=== PATIENT | female | born 1950 | race Caucasian/White ===

== ENCOUNTER 2018-08-28 06:02 | Inpatient (IN) ==
--- NOTE | 2018-08-01 14:09 | PAT Medication Instructions ---
Medication Instructions Date of Service August 01, 2018 Home Medications cholecalciferol (vitamin D3) 1,000 unit PO QAM cyclobenzaprine 10 mg PO HS PRN flaxseed oil 1,000 mg PO QAM losartan-hydrochlorothiazide 1 tab PO QAM lutein 10 mg PO QAM naproxen sodium 440 mg PO BID ASK your surgeon for instructions naproxen sodium 440 mg PO BID STOP taking 2 weeks before surgery (or as soon as possible if surgery is within 2 weeks) flaxseed oil 1,000 mg PO QAM lutein 10 mg PO QAM DO NOT take the morning of surgery cholecalciferol (vitamin D3) 1,000 unit PO QAM losartan-hydrochlorothiazide 1 tab PO QAM Take evening before surgery cyclobenzaprine 10 mg PO HS PRN (if needed) Other Notes If you have any questions please call us at [phone] or [phone] or [phone] or [phone]
--- NOTE | 2018-08-02 13:16 | Anesthesiology Consultation ---
Date of Service August 02, 2018 Assessment & Plan (1) Encounter for pre-operative examination: - Possible difficult intubation due to anatomy. Chart Review Chart Review: Acceptable Risk for Surgery and Patient seen in Pre Admission Testing Teaching & Discussion Pre-Anesthesia Teaching/Discussion Notes: Instructed NPO after midnight before surgery,except medications with 15 cc of water. Medication instructions provided according to the PAT guidelines. History Surgery Operation Date: 08/28/18 07:45 Proposed Procedures p L4-L5 Decompression and Fusion, Spinal Cord Monitoring - Adam Farnsworth DO Height/Weight Height: 5 ft 5.5 in Weight: 125.7 kg Allergies Allergy/AdvReac Type Severity Reaction Status Date / Time codeine AdvReac SEVERE Verified 07/26/18 11:11 NAUSEA AND VOMITING Medications Home Medications Medication Instructions Recorded Confirmed Last Taken cholecalciferol (vitamin D3) 1,000 unit PO QAM 07/26/18 07/26/18 Unknown [Vitamin D3] cyclobenzaprine 10 mg PO HS PRN 07/26/18 07/26/18 Unknown flaxseed oil 1,000 mg PO QAM 07/26/18 07/26/18 Unknown losartan-hydrochlorothiazide 1 tab PO QAM 07/26/18 07/26/18 Unknown lutein 10 mg PO QAM 07/26/18 07/26/18 Unknown naproxen sodium 440 mg PO BID 07/26/18 07/26/18 Unknown Past Medical History Medical History Chronic back pain LLE > RLE RADICULOPATHY/NEUROPATHY Degenerative disc disease History of endometrial cancer S/P HYSTERECTOMY + INTERNAL RADIATION (2012) Hypertension Morbid obesity Sleep apnea BIPAP Exercise / Class Metabolic Activity III < 4 Walking/Shop/Light housework Past Surgical History Surgical History History of section History of cholecystectomy History of colonoscopy History of hysterectomy History of surgery VARICOSE VEINS CAUTERIZATION Past Anesthesia History No Hx of Anesthesia Complications and No Family Hx of Anesthesia Complications History of PONV No Hx of PONV and Hx of Motion Sickness (OCCASIONAL) Social History Smoking Status: Never smoker Smoking cigarettes per day: 0 Do You Dip or Chew Tobacco: No Hx Alcohol Use: Yes Alcohol type: wine alcohol intake frequency: 0-2 drinks per day Alcohol Intake Frequency Comment: 1 GLASS PER NIGHT Hx Substance Use: No substance use type: does not use Review of Systems LBP with B/L LE radiculopathy/neuropathy. Patient denies chest pain, shortness of breath, reflux, cough, wheezing, palpitations. Physical Exam Vital Signs VITALS BP 128/82 P 60 TEMP 98.1 SP02 97%RA RESP 18 PHYSICAL Full neck and c-spine range of motion. Full TMJ range of motion. TMD 3 finger breaths Mallampati Score 3 Dentition: full upper dentures; several missing on lower Lungs: clear throughout to auscultation Cardiac: regular rate and rhythm, no murmurs noted Spine: normal Carotid arteries: negative bruit Extremities: no edema short, thick neck Testing Electrocardiogram Date: 08/02/18 NSR at 67bpm. Suggests RVCD. LAFB. Chest X-Ray Date: 08/02/18 Findings: + NAD Laboratory Results 08/02/18 13:39 08/02/18 13:39 Blood Type A Positive 08/02/18 13:39 Antibody Screen NEGATIVE 08/02/18 13:39 PT 10.3 Seconds (9.0-12.0) 08/02/18 13:39 INR 1.0 (0.9-1.1) 08/02/18 13:39 APTT 25.9 Seconds (21.0-31.0) 08/02/18 13:39 Urine Color Yellow 08/02/18 13:39 Urine Appearance Clear (Clear) 08/02/18 13:39 Urine pH 8.0 (4.5-7.5) H 08/02/18 13:39 Ur Specific [place] 1.015 (1.000-1.030) 08/02/18 13:39 Urine Protein Negative (Negative) 08/02/18 13:39 Urine Glucose (UA) Negative (Negative) 08/02/18 13:39 Urine Ketones Negative (Negative) 08/02/18 13:39 Urine Nitrite Negative (Negative) 08/02/18 13:39 Ur Leukocyte Esterase Negative (Negative) 08/02/18 13:39
--- NOTE | 2018-08-02 14:07 | XRay Report ---
XR chest Pre-admission PA/Lat CLINICAL HISTORY: pat preoperative evaluation COMPARISON STUDY: No previous studies for comparison. FINDINGS: The bones soft tissues and hemidiaphragms are normal. The cardiomediastinal silhouette is n ormal. The lungs are clear. The pulmonary vasculature is normal. IMPRESSION: Negative chest. The above report was generated using voice recognition software. It may contain grammatical, syntax or spelling errors. Electronically signed by: Moises Mancini M.D. 08/02/2018 2:05 PM
[2018-08-02 14:10] LABS: Basophils # (auto) 0.02 K/uL (0-0.2); Basophils % (auto) 0.3 %; Eosinophils # (auto) 0.16 K/uL (0-0.5); Eosinophils % (auto) 2.4 %; Hematocrit (blood only) 39.8 % (37-47); Hemoglobin 13.7 g/dL (12.0-16.0); Immature Granulocytes # (auto) 0.02 K/uL (0.00-0.02); Immature Granulocytes % (auto) 0.3 %; Lymphocytes # (auto) 1.22 K/uL (1.2-3.4); Lymphocytes % (auto) 18.5 %; Mean Corpuscular Hgb Conc 34.4 g/dL (32-36); Mean Corpuscular Volume 87.5 fL (80-100); Monocytes # (auto) 0.47 K/uL (0.11-0.59); Monocytes % (auto) 7.1 %; Neutrophils # (auto) 4.72 K/uL (1.4-6.5); Neutrophils % (auto) 71.4 %; Platelet Count 243 K/uL (130-400); RDW Coefficient of Variation 13.2 % (11.5-14.5); RDW Standard Deviation 42.5 fL (36.4-46.3); Red Blood Count 4.55 M/uL (4.2-5.4); White Blood Count 6.61 K/uL (4.8-10.8)
[2018-08-02 14:36] LABS: Partial Thromboplastin Time 25.9 Seconds (21.0-31.0); Prothrombin Time 10.3 Seconds (9.0-12.0)
[2018-08-02 14:38] LABS: BUN Creatinine Ratio 18.3 (10-20); Calcium 9.6 mg/dl (8.5-10.1); Creatinine Clr Calc Pharmacy 109.6 ml/min; Est GFR (African American) 105.4; Potassium 4.1 mmol/L (3.5-5.1)
[2018-08-02 14:41] LABS: Appearance Urine Clear (Clear); Bilirubin Urine Negative (Negative); Blood Urine Negative (Negative); Color Urine Yellow; Glucose Urine UA Negative (Negative); Ketones Urine Negative (Negative); Leukocyte Esterase Urine Negative (Negative); Nitrite Urine Negative (Negative); Protein Urine Negative (Negative); Specific Gravity Urine 1.015 (1.000-1.030); Urobilinogen Urine Negative (Negative)
[~2018-08-28 06:02] MED LIST: ACETAMINOPHEN 500 MG TAB PO SCH; CEFAZOLIN 2000MG 2,000 MG/15 ML SYR IV SCH; CeleBREX 200 MG CAP PO SCH; GABAPENTIN 300 MG PO SCH; LR 15ML/HR IV SCH; MISSING PHYSICIAN SIGNATURE ON ORDER SCH; ROPIVACAINE 0.5% HCL/PF 150 MG, BUPIVACAINE 0.5% MPF 30 ML, EPINEPHrine 30MG/30ML (OR U... INFIL SCH
[2018-08-28] MEDS ORDERED: MIDAZOLAM HCL 1 MG/ML 2ML VIAL ONE (06:52)
[2018-08-28] MEDS ORDERED: HYDROmorphone INJ 2 MG/ML SYR/VIAL ONE (06:52)
[2018-08-28] MEDS ORDERED: fentaNYL citrate 100 MCG/2 ML VIAL ONE ×4 (06:52→09:40)
[2018-08-28] MEDS ORDERED: LIDOCAINE HCL 2% 2 ML VIAL/AMP(20MG/ML) INFIL ONE (06:54)
[2018-08-28] MEDS ORDERED: DEXAMETHASONE SOD INJ 4 MG/ML VIAL ONE (06:54)
[2018-08-28] MEDS ORDERED: GLYCOPYRROLATE 0.2 MG/ML VIAL ONE (06:54)
[2018-08-28] MEDS ORDERED: ROCURONIUM BROMIDE 10 MG/ML 5 ML VIAL ONE (06:54)
[2018-08-28] MEDS ORDERED: ONDANSETRON INJ 2 MG/ML 2 ML VIAL ONE (06:54)
[2018-08-28] MEDS ORDERED: NEOSTIGMINE METHYLSULFATE 1 MG/ML 10ML VIAL ONE (06:54)
[2018-08-28] MEDS ORDERED: PROPOFOL IV EMULSION 10 MG/ML 20 ML VIAL IV ONE (06:54)
[2018-08-28] MEDS ORDERED: ONDANSETRON INJ 2 MG/ML 2 ML VIAL IV PRN ×2 (07:21→10:59)
[2018-08-28] MEDS ORDERED: ePHEDrine sulfate 50 MG/ML AMP IV PRN (07:21)
[2018-08-28] MEDS ORDERED: BUPIVACAINE/EPINEPHRINE 0.5% MPF 1:200,000 30 ML VIAL ONE (07:21)
[2018-08-28] MEDS ORDERED: ATROPINE SULFATE 0.1 MG/ML 10ML SYR IV PRN (07:21)
[2018-08-28] MEDS ORDERED: PHENYLEPHRINE 100MCG/ML 5ML SYR IV PRN (07:21)
[2018-08-28] MEDS ORDERED: PROMETHAZINE HCL 12.5 MG in SODIUM CHLORIDE 0.9% 50 ML IV PRN ×2 (07:21→10:59)
[2018-08-28] MEDS ORDERED: fentaNYL citrate 100 MCG/2 ML VIAL IV PRN (07:21)
[2018-08-28] MEDS ORDERED: BACITRACIN INJ 50,000 UNIT VIAL ONE (07:21)
[2018-08-28] MEDS ORDERED: HYDROmorphone INJ 1 MG/ML SYRINGE IV PRN (07:21)
--- NOTE | 2018-08-28 07:33 | History & Physical Bridge Note ---
Date of Service August 28, 2018 History & Physical Bridge Note I have examined the patient, reviewed the History & Physical and in the interval since the performance of the History & Physical I have noted the following changes of clinical significance: no changes noted
--- NOTE | 2018-08-28 07:35 | History & Physical Report ---
Date of Service August 28, 2018 Assessment & Plan (1) Spinal stenosis, lumbar region with neurogenic claudication: Lumbar decompression and fusion L4-5 Present on Admission?: Yes History of Present Illness Chief Complaint: Back and leg pain which Primary Care Provider: Josue White This is a 68-year-old female who presents with chronic persistent back and leg pain. After failing extensive course of nonoperative care is here for surgical intervention. Allergies Allergy/AdvReac Type Severity Reaction Status Date / Time codeine AdvReac SEVERE Verified 08/28/18 06:30 NAUSEA AND VOMITING Home Medications Home Medications Medication Instructions Recorded Confirmed Type cholecalciferol (vitamin D3) 1,000 unit PO QAM 07/26/18 08/28/18 History [Vitamin D3] cyclobenzaprine 10 mg PO HS PRN 07/26/18 08/28/18 History flaxseed oil 1,000 mg PO QAM 07/26/18 08/28/18 History losartan-hydrochlorothiazide 1 tab PO QAM 07/26/18 08/28/18 History lutein 10 mg PO QAM 07/26/18 08/28/18 History naproxen sodium 440 mg PO BID 07/26/18 08/28/18 History Past Med/Surg History Social History Preferred Language: Cymro Communication Ability: Effective Travel Nurse Required: No Beliefs That Will Affect Care: None Current Living Situation: Family Other Information That Helps Us Care for You: No Feels Safe at Home: Yes Safety Concerns: Feels Safe At This Time Smoking Status: Never smoker Cigarettes Per Day: 0 Do You Dip or Chew Tobacco: No Second Hand Exposure: Yes (PT'S MOTHER WAS A "HEAVY SMOKER") Tobacco Cessation Education Requested by Patient: No Hx Alcohol Use: Yes Alcohol type: wine Hx Substance Use: No Physical Exam Vital Signs (Past 24 Hours): Last Vital Signs Temp 36.6 C 08/28/18 06:43 Pulse 71 08/28/18 06:43 Resp 20 08/28/18 06:43 BP 145/75 H 08/28/18 06:43 Pulse Ox 99 08/28/18 06:43 Physical Exam: Patient is alert and oriented neurologically intact.
[2018-08-28] MEDS ORDERED: LARYING-O-JET KIT (LTA) ONE (08:21)
[2018-08-28] MEDS ORDERED: SODIUM CHLORIDE 0.9% INJ 10 ML VIAL ONE (08:28)
[2018-08-28] MEDS ORDERED: FLOSEAL HEMOSTATIC MATRIX 10ML TOP ONE (08:37)
[2018-08-28] MEDS ORDERED: CEFAZOLIN 250 MG/ML 1 GM VIAL ONE (09:13)
[2018-08-28] MEDS ORDERED: CEFAZOLIN 3000MG 72.5 ML IV ONE (09:35)
--- NOTE | 2018-08-28 09:38 | Operative Report ---
Post Operative Report Pre & Post Diagnosis Operation Date: 08/28/18 07:45 Pre-Op Diagnosis: Spinal stenosis, lumbar region with neurogenic claudication Spondylolisthesis L4-5. Morbid obesity. Post-Op Diagnosis: Same Procedure Operation Date: 08/28/18 07:45 Actual Procedures #1 lumbar decompression bilateral medial facetectomies foraminotomies L3-4 L4-5 per #2 posterior spinal fusion L4-5 per #3 placement posterior instrumentation L4-5. #4 interbody fusion L4-5 per #5 placement of titanium 15 x 22 mm cage L4- 5 per #6 placement of local autograft in the posterior lateral gutters per #7 placement infuse collagen sponge combined with master graft in the posterior lateral gutters and ostial amp and interbody space. Surgeon Adam Farnsworth, Voice Writing Reporter Casi Jasso Estimated Blood Loss 175 Findings See Below Patient is 5 foot 5 inches tall and 125 kg with a BMI of 45.9. The patient's body mass created significant technical difficulty requiring her largest retractors and longus Kerrisons to perform the procedure. It added at least 25 to 30% increase in operative time. Specimens None Indications This is a 68-year-old female presents with above-mentioned diagnosis after failing extensive course of nonoperative care she like to undergo above- mentioned procedure. Description of Procedure Patient was met with identified and informed consent obtained. Patient was then taken to the operative suite underwent intubation placed in the prone position on the Yosvany table on top of the Fernando frame. All bony prominences well- padded eyes inspected to ensure no external pressure placed upon the peer at this point the lumbar spine was prepped and draped in the normal sterile fashion. Sharp dissection with the assistance of Bovie cautery was performed down to and exposing the lamina transverse processes of L4-L5. From a caudal to cephalad fashion complete laminectomy L4 partial laminectomy fill 3 was performed including bilateral medial facetectomies and foraminotomies to address severe stenosis. Pedicle screws were then placed in L4 and L5 bilaterally with assistance of fluoroscopy and appropriate size tamar placed. By way of a transforaminal approach and left complete discectomy of L4-5 was performed in plate graded to subcortical bone and a 15 x 22 mm titanium cage filled with ostium bone graft tapped in position. The rods were then compressed locked into final position bilaterally. The transverse processes of L4 and 5 bur to subcortical bleeding bone. Infuse collagen sponge master graft local autograft placed in the posterior lateral gutters. 15 round TELLY drain inserted. The incision was then closed with 1 Vicryl fascia 2-0 Vicryl subcutaneously seen for Monocryl for final skin closure. Steri-Strip sterile dressing placed. Patient will continue to PACU stable condition. Please note Casi Jasso present throughout the entire procedure involved the patient positioning complex portions of the surgery and final skin closure. Lastly spinal cord monitoring was utilized throughout the procedure no changes noted. I attest to the content of the Intraoperative Record and any orders documented therein. Any exceptions are noted below.
--- NOTE | 2018-08-28 09:41 | Fluoroscopy Report ---
FL lumbar spine 2-3V CLINICAL HISTORY: L4-L5 DECOMPRESSION AND FUSION COMPARISON STUDY: None FLUOROSCOPY TIME: 19 seconds NUMBER OF FLUOROSCOPIC IMAGES: 2 FINDINGS: Findings consistent with an L4-L5 laminectomy and fusion. Disc spacer is present at L4-L5. Alignment is anatomic. IMPRESSION: Anatomic alignment post L4-L5 laminectomy and fusion. The above report was generated using voice recognition software. It may contain grammatical, syntax or spelling errors. Electronically signed by: Moises Mancini M.D. 08/28/2018 9:40 AM
--- NOTE | 2018-08-28 10:52 | Anesthesiology Progress Note ---
Date of Service August 28, 2018 Anesthesia Post Procedure Vital Signs Vital Signs: Temp Pulse Pulse Resp BP Pulse Ox 08/28/18 10:30 36.4 C L 80 14 135/74 100 08/28/18 10:20 66 14 152/77 H 100 08/28/18 10:10 78 15 159/73 H 100 08/28/18 10:00 94 H 14 189/98 H 100 08/28/18 09:53 36.8 C 76 14 162/83 H 96 08/28/18 06:43 36.6 C 71 20 145/75 H 99 Pain Intensity Lower Back: Pain Intensity: 4 Transfer of Care Handoff Completed per policy Notes Mental Status: alert / awake / arousable Patient Amnestic to Procedure: Yes Nausea / Vomiting: adequately controlled Pain: adequately controlled Airway Patency, RR, SpO2: stable & adequate BP & HR: stable & adequate Hydration State: stable & adequate Anesthetic Complications: no major complications apparent
[2018-08-28] MEDS ORDERED: ESMOLOL HCL INJ 10 MG/ML 10ML VIAL IV ONE (10:58)
[2018-08-28] MEDS ORDERED: KETOROLAC 30 MG/ML VIAL ONE (10:58)
[2018-08-28] MEDS ORDERED: HYDROmorphone INJ 0.5 MG/0.5 ML SYR IV PRN (10:59)
[2018-08-28] MEDS ORDERED: DO NOT ADMINISTER FLU VACCINE PRN (10:59)
[2018-08-28] MEDS ORDERED: SOD PHOSPHATE/SOD BIPHOSPHATE ENEMA 132 ML BTL PR PRN (10:59)
[2018-08-28] MEDS ORDERED: LORazepam 0.5 MG/1 ML VIAL IV PRN (10:59)
[2018-08-28] MEDS ORDERED: METOCLOPRAMIDE HCL INJ 5 MG/ML 2 ML VIAL IV PRN (10:59)
[2018-08-28] MEDS ORDERED: TRAMADOL HCL 50 MG TABLET PO PRN (10:59)
[2018-08-28] MEDS ORDERED: DO NOT ADMINISTER PNEUMOCOCCAL VACCINE PRN (10:59)
[2018-08-28] MEDS ORDERED: CYCLOBENZAPRINE HCL 10 MG TAB PO PRN (10:59)
[2018-08-28] MEDS ORDERED: LORazepam 0.5 MG TAB PO PRN (10:59)
[2018-08-28] MEDS ORDERED: ACETAMINOPHEN 1,000 MG/100 ML VIAL IV PRN (10:59)
[2018-08-28] MEDS ORDERED: ACETAMINOPHEN 500 MG TAB PO PRN (10:59)
[2018-08-28] MEDS ORDERED: FAMOTIDINE 20 MG TAB PO PRN (10:59)
[2018-08-28] MEDS ORDERED: MAGNESIUM HYDROXIDE SUSP 30 ML UDC PO PRN (10:59)
[2018-08-28] MEDS ORDERED: ALUMINUM/MAGNESIUM SUSP 30 ML UDC PO PRN (10:59)
[2018-08-28] MEDS ORDERED: ONDANSETRON 4 MG TAB PO PRN (10:59)
[2018-08-28] MEDS: LACTATED RINGER'S 1,000 ML IV SCH ×3 (11:36→23:32)
[2018-08-28] MEDS: OXYCODONE HCL IR 5 MG TAB (IMMEDIATE RELEASE) PO PRN (13:25)
[2018-08-28] MEDS: KETOROLAC TROMETHAMINE 15 MG/ML VIAL IV SCH ×2 (16:30→21:41)
[2018-08-28] MEDS: CEFAZOLIN 2000MG 2,000 MG/15 ML SYR IV SCH ×2 (16:30→23:32)
[2018-08-28] MEDS: DOCUSATE SODIUM/SENNA 50/8.6MG TAB PO SCH (20:02)
[2018-08-29] MEDS: POLYETHYLENE (MIRALAX) 17 GM PACK PO SCH ×4 (05:41→23:30)
[2018-08-29] MEDS: KETOROLAC TROMETHAMINE 15 MG/ML VIAL IV SCH ×2 (05:46→11:21)
[2018-08-29 05:55] LABS: Eosinophils # (auto) 0.02 K/uL (0-0.5); Eosinophils % (auto) 0.2 %; Hematocrit (blood only) 34.4 % (37-47); Hemoglobin 11.7 g/dL (12.0-16.0); Immature Granulocytes # (auto) 0.03 K/uL (0.00-0.02); Immature Granulocytes % (auto) 0.3 %; Lymphocytes # (auto) 0.55 K/uL (1.2-3.4); Lymphocytes % (auto) 4.7 %; Mean Corpuscular Volume 87.1 fL (80-100); Mean Platelet Volume 9.8 fL (7.4-10.4); Monocytes # (auto) 1.05 K/uL (0.11-0.59); Neutrophils # (auto) 10.03 K/uL (1.4-6.5); Neutrophils % (auto) 85.8 %; Platelet Count 237 K/uL (130-400); RDW Coefficient of Variation 13.1 % (11.5-14.5); RDW Standard Deviation 42.1 fL (36.4-46.3); Red Blood Count 3.95 M/uL (4.2-5.4); White Blood Count 11.68 K/uL (4.8-10.8)
[2018-08-29 06:40] LABS: Calcium 8.7 mg/dl (8.5-10.1); Creatinine Clr Calc Pharmacy 89.7 ml/min; Est GFR (African American) 87.1; Est GFR (Non-African American) 75.2; Potassium 4.2 mmol/L (3.5-5.1)
--- NOTE | 2018-08-29 08:08 | Anesthesiology Progress Note ---
Date of Service August 29, 2018 Anesthesia Post Procedure Vital Signs Vital Signs: Temp Pulse Pulse Pulse Resp BP Pulse Ox 08/29/18 07:01 36.5 C 81 80 18 142/78 H 99 08/29/18 04:16 36.6 C 81 18 121/66 97 08/28/18 23:07 36.6 C 84 16 137/76 95 08/28/18 20:00 36.5 C 96 H 20 154/81 H 96 08/28/18 15:12 36.5 C 69 16 110/67 94 08/28/18 13:45 71 18 148/73 H 96 08/28/18 12:53 83 18 151/74 H 96 08/28/18 11:50 36.4 C L 64 16 157/84 H 93 08/28/18 11:26 60 18 150/76 H 94 08/28/18 10:30 36.4 C L 80 14 135/74 100 08/28/18 10:20 66 14 152/77 H 100 08/28/18 10:10 78 15 159/73 H 100 08/28/18 10:00 94 H 14 189/98 H 100 08/28/18 09:53 36.8 C 76 14 162/83 H 96 Pain Intensity Lower Back: Pain Intensity: 3 Notes Mental Status: alert / awake / arousable and participated in evaluation Patient Amnestic to Procedure: Yes Nausea / Vomiting: adequately controlled Pain: adequately controlled Airway Patency, RR, SpO2: stable & adequate BP & HR: stable & adequate Hydration State: stable & adequate Anesthetic Complications: no major complications apparent
[2018-08-29] MEDS: LOSARTAN POTASSIUM 50 MG TAB PO SCH (08:58)
[2018-08-29] MEDS: OXYCODONE HCL IR 5 MG TAB (IMMEDIATE RELEASE) PO PRN ×3 (08:58→21:15)
[2018-08-29] MEDS: hydroCHLOROthiazide 25 MG TAB PO SCH (08:59)
[2018-08-29] MEDS ORDERED: NON-FORMULARY MEDICATION (Lutein 10 MG) PO SCH (09:00)
--- NOTE | 2018-08-29 11:15 | Orthopedic Progress Note ---
Date of Service August 29, 2018 Assessment & Plan (1) Spinal stenosis, lumbar region with neurogenic claudication: This time we will continue physical therapy monitor her TELLY output anticipate discharge home Sunday or Sunday. Present on Admission?: Yes Subjective Back pain is controlled leg symptoms markedly improved. Physical Exam Physical Exam: On exam patient has good strength testing appears comfortable. Results & Data Vital Signs (Past 12 Hours) Vital Signs Temp Pulse Pulse Resp BP Pulse Ox 08/29/18 11:06 36.5 C 67 18 148/92 H 97 08/29/18 07:01 36.5 C 81 80 18 142/78 H 99 08/29/18 04:16 36.6 C 81 18 121/66 97
[2018-08-29] MEDS: DOCUSATE SODIUM/SENNA 50/8.6MG TAB PO SCH (21:12)
[2018-08-30] MEDS: POLYETHYLENE (MIRALAX) 17 GM PACK PO SCH ×2 (05:52→11:23)
[2018-08-30] MEDS: OXYCODONE HCL IR 5 MG TAB (IMMEDIATE RELEASE) PO PRN ×2 (05:54→13:19)
[2018-08-30] MEDS: LOSARTAN POTASSIUM 50 MG TAB PO SCH (08:19)
[2018-08-30] MEDS: hydroCHLOROthiazide 25 MG TAB PO SCH (08:19)
--- NOTE | 2018-08-30 15:49 | Discharge Summary ---
Date of Service August 30, 2018 Admission HPI Per Admitting Provider This is a 68-year-old female who presents with chronic persistent back and leg pain. After failing extensive course of nonoperative care is here for surgical intervention. Principal Diagnosis Lumbar spinal stenosis with neurogenic claudication Discharge Data Allergies Allergy/AdvReac Type Severity Reaction Status Date / Time codeine AdvReac SEVERE Verified 08/28/18 06:30 NAUSEA AND VOMITING Consultations 08/28/18 10:59 Consult Case Management - Discharge Planning Routine Procedures Performed Operation Date: 08/28/18 07:45 Actual Procedures p L4-L5 Decompression and Fusion, Insertion of Interbody L4-L5, Application of OsteoAMP and Bone Morphogenetic Protein, Spinal Cord Monitoring - Adam Farnsworth DO Ordered Studies 08/28/18 07:45 FL fluoroscopy <1hr Routine [place] lumbar spine 2-3V Routine Hospital Course (1) Spinal stenosis, lumbar region with neurogenic claudication: Patient underwent lumbar decompression fusion tolerated as well as an orthopedic for postoperative replacement and when she was up and ambulating nicely. Progressive postop day 2 postop day #3 she is feeling comfortable subsequent discharge home. Discharge orders and instructions from the chart for further review. Total Time Total Time Spent Total Time Spent (In Minutes): 20 minutes Discharge Plan Discharge Items Patient Disposition: Home - Self-Care Reason For Visit: LUMBAR SPINAL STENOSIS W/NEUROGENIC CLAUDICATION Discharge Diagnosis: lumbar stenosis Discharge Goals: Improve function Activity: Per 'Additional Instructions' section Non-emergency contact: Primary Care Provider Call non-emergency contact if: you have any medication questions Follow-up/Referrals: Josue White [Primary Care Provider] - Diet: Regular Addtl Provider Instructions: ACTIVITY RECOMMENDATIONS: SELF CARE INSTRUCTIONS AFTER THORACIC/LUMBAR FUSIONS 1. You may walk to your tolerance. It is good exercise for your legs and back. Expect some back and intermittent leg aches and pains. 2. You may perform "counter-top" level activities (make a sandwich, speedy with a project, etc.). 3. No bending or lifting of more than 10 pounds or back twisting of any nature (roll like a log when turning in bed). 4. You may ride in a car for 20-30 minutes at a time. No driving until after your first visit with your doctor. 5. Frequent changes of position and restricting sitting to 30 minutes at a time will help limit the amount of back spasms and stiffness you may experience. 6. You may discontinue the use of ambulatory aids (cane, crutches, etc.) once your strength and confidence allow. 7. You may figurine maker the shower and let water strike your incision when you arrive home at least once daily. Do not take a tub bath, sit in a hot tub or go into a swimming pool until after your first recheck in the office. SPECIAL CARE INSTRUCTIONS: VERY IMPORTANT TO READ AND REVIEW A. Your surgical incision has been closed with a cosmetic suture under the skin that will dissolve in about 6 weeks. In 14 days, you can use a pair of clean scissors and cut the suture that is left outside of the skin at the ends of your incision. 1. The small skin tapes can be removed 7 days after surgery if they have not fallen off by that point. 2. You may keep the wound open to air as much as possible to promote healing after post-op day number 5 unless told otherwise by your doctor. 3. If you think the wound looks like it is becoming infected (redness or worsening drainage) and/or you are experiencing fever, chill or worsening back pain and muscle spasms, contact the office so that we may evaluate you as soon as possible. B. Complications are uncommon, but please contact us if you have any signs or symptoms of: 1. wound infection (fever higher than 102.5 degrees F, redness, separation of wound, drainage, or increasing pain from the incision) 2. blood clots in legs (pain, swelling, redness and warmth in legs) 3. urinary tract infection (fever higher than 102.5 degrees F, burning upon urination or increased frequency of urination) 4. nerve problems (inability to walk on your toes or heels, numbness, loss of bowel or bladder control) 5. any other symptoms that concern you C. Please call the office at if you have any concerns or questions about your operation or recovery. D. No smoking! Smoking drastically decreases the chance of a solid fusion. E. Do not take any anti-inflammatory medications (Indocin, Advil, Motrin, Aspirin, Naprosyn, etc.) as these may inhibit the chance of a solid fusion. Tylenol is okay to take for pain. MANAGING PAIN AFTER SPINAL SURGERY 1. Narcotic medication is intended for short-term use and will be provided for surgical pain. Surgical pain usually lasts for a period of 4-6 weeks. Narcotic medication includes Percocet, Vicodin, Darvocet, Tylenol #3 or Lortab. 2. Longer-term pain is more appropriately treated with non-narcotic medication such as Tylenol ES. 3. Muscle spasm is not appropriately treated with narcotics. Muscle relaxers such as Soma, Flexeril or Skelaxin can be used along with Tylenol ES. 4. Remember that we all live with some "aches and pains". This is not unusual or uncommon after an injury or as we get older. a. Back pain is expected and may include muscle spasms for 4 to 6 weeks after surgery. The pain should gradually improve. If the pain worsens for no apparent reason, please contact the office. b. Intermittent leg pain may also be experienced and should not be concerned about unless it worsens for no apparent reason. If so, please contact the office. 5. We will provide appropriate medication within the normal guidelines of their prescribed use. We will also be very cautious and aware of potential abuse and extended duration of patients' medication needs. a. Pain medications are for your comfort and to assist with sleep and rest so that the tissue can heal. They are not provided in order to return to normal activity and should not be used through the day. To do so or worsening pain at night can result from ongoing tissue damage and development of tolerance to the prescribed medicine. 6. Please allow 2-3 days to process refills. Prescriptions will not be mailed but must be picked up at the office. FOLLOW UP VISIT: Keep your scheduled follow-up appointment. Any questions, please call the office at . Prescriptions: New tramadol 50 mg Tablet 50 mg PO Q4H PRN (Reason: Pain, Moderate) Qty: 30 RF: 0 oxycodone 5 mg Tablet 5 mg PO Q4H PRN (Reason: Pain, Severe) Qty: 30 RF: 0 Continued cyclobenzaprine 10 mg Tablet 10 mg PO HS PRN (Reason: Pain) RF: 0 flaxseed oil 1,000 mg Capsule 1,000 mg PO QAM RF: 0 cholecalciferol (vitamin D3) [Vitamin D3] 1,000 unit Capsule 1,000 unit PO QAM RF: 0 losartan-hydrochlorothiazide 100-12.5 mg Tablet 1 tab PO QAM RF: 0 lutein 10 mg Tablet 10 mg PO QAM RF: 0 Discontinued naproxen sodium 220 mg Tablet 440 mg PO BID RF: 0 Stand-Alone Forms: [facility] Discharge Orders: Discharge Order (Routine); Ordered 08/30/18 Ordered By: Adam Farnsworth Admission Data Admit Date/Time: 08/28/18 09:42 Attending Provider: Adam Farnsworth Admit Provider: Adam Farnsworth Primary Care Provider: Josue White Service: Surgical Services Other Interventions: Discharge Summary Assessment (RN) Last Done: 08/30/18 13:21 DC Date/Time DO NOT enter until pt leaves facility: 08/30/18 13:41
== END 2018-08-30 13:41 | disposition home or self-care (01) | DRG 454 ==
LOC: ASU 06:02 → 3E 09:42